=== PATIENT | female | born 1960 ===

== ENCOUNTER 2016-07-12 10:42 | Emergency (ER) | payer BC ==
[~2016-07-12] VITALS: Ht 162.6 cm; Wt 55.7 kg
[~2016-07-12 10:42] MED LIST: MECL1TAB40 PO
[2016-07-12 10:57] VITALS: TEMP 36.4; Ht 162.6 cm; Wt 55.7 kg
[2016-07-12 11:32] VITALS: O2SAT 99
[2016-07-12 12:03] LABS: BASO % 0.2 %; BASO ABS # 0.01 K/uL (0-0.2); COMPLETE YES; EOS % 0.2 %; HEMATOCRIT 39.2 % (37-47); IG% 0.2 %; LYMPH % 21.3 %; LYMPH ABS # 1.08 K/uL (1.2-3.4); MEAN CORPUSCULAR HEMOGLOBIN 29.8 pg (25-34); MEAN CORPUSCULAR HGB CONC 34.7 g/dl (32-36); MEAN PLATELET VOLUME 11.4 fL (7.4-10.4); MONO % 6.7 %; NEUT % 71.4 %; PLATELET COUNT 205 K/uL (130-400); RED BLOOD COUNT 4.56 M/uL (4.2-5.4); WHITE BLOOD COUNT 5.07 K/uL (4.8-10.8)
[2016-07-12] MEDS ORDERED: SODIUM CHLORIDE 0.9% 1000ML 1,000 ML IV STA (12:25)
--- NOTE | 2016-07-12 12:29 | EMERGENCY ROOM VISIT NOTE ---
History Report prepared by Nataly: Daniel Kirkland Under the Supervision of: Dr. Bubba Pizarro M.D. First contact with patient: 12:18 Chief Complaint: DIZZY Stated Complaint: DIZZINESS,WEAKNESS,FEVER Nursing Triage Summary: Patient reports feeling lightheaded and states it feels like hot air is coming out of her ears at times. Patient also having mild nausea on and off. Patient denies any history states that she is under a lot of stress right now. History of Present Illness The patient is a 55 year old female who presents to the Emergency Room with complaints of dizziness. Notes 3 days of increased stress at home. Associated with this are anxiety, feeling of heart racing, warmth in ears, "funny feeling in head and" without any headache nor vision changes. Denies syncope, nausea, vomiting, chest pain, sob, urinary symptoms, weakness, nor other symptoms. She DENIES any fevers, just that she felt warm this morning. She has taken no medications for this. Relaxing makes symptoms better. Thinking about stress makes them worse. History of anemia and is concerned she may be anemic again. No other medications taken for this. No history of this happening before. No PMH other than anemia. Hypertension on arrival gradually improving. Source of History: patient Onset: Past few days Position: other (global - dizziness) Timing: other (persistent) Associated Symptoms: No LOC, No SOB, No chest pain, No fevers, No headache, No nausea, No urinary symptoms, No vomiting, No weakness Note: Associated symptoms: Anxious, heart racing, warmth in ears, "funny feeling in head". Denies vision changes. Review of Systems See HPI for pertinent positives & negatives. A total of 10 systems reviewed and were otherwise negative. Past Medical & Surgical Medical Problems: (1) ANEMIA NOS (2) IRON DEFIC ANEMIA NOS (3) Orthostatic hypotension Family History No pertinent family history Social History Smoking Status: Never Smoker Marital Status: Occupation Status: employed Current/Historical Medications No Active Prescriptions or Reported Meds Allergies Coded Allergies: No Known Allergies (Unverified , 07/12/16) Physical Exam Vital Signs Date Time Temp Pulse Resp B/P Pulse Ox O2 Delivery O2 Flow Rate FiO2 07/12/16 13:56 84 20 174/97 98 07/12/16 13:40 79 07/12/16 13:24 72 20 165/91 98 Room Air 07/12/16 11:59 70 16 169/98 97 Room Air 07/12/16 11:33 68 173/113 72 167/104 74 158/108 07/12/16 11:32 99 Room Air 07/12/16 11:22 67 07/12/16 10:57 36.4 70 16 167/104 96 Room Air Physical Exam GENERAL: Patient is mildly appearing and in no acute distress. HEENT: No acute trauma, normocephalic atraumatic, mucous membranes moist, no nasal congestion, no scleral icterus. NECK: No stridor, no adenopathy, no meningismus, trachea is midline. LUNGS: No dyspnea. Clear to auscultation and equal bilaterally. No wheeze, no rhonchi. HEART: Regular rate and rhythm. Mild systolic murmur, no rubs, no gallops appreciated. ABDOMEN: Soft, nontender, bowel sounds positive, no masses appreciated, no peritonitis. BACK: No midline tenderness, no CVA tenderness EXTREMITIES: Normal motion all extremities, no cyanosis, no edema. NEUROLOGIC: Alert and oriented, no acute motor or sensory deficits, no focal weakness, cranial nerves grossly intact. SKIN: No rash, no jaundice, no diaphoresis. Medical Decision & Procedures Laboratory Results 07/12/16 11:25 Red Blood Count 4.56, Mean Corpuscular Volume 86.0, Mean Corpuscular Hemoglobin 29.8, Mean Corpuscular Hemoglobin Concent 34.7, Mean Platelet Volume 11.4, Neutrophils (%) (Auto) 71.4, Lymphocytes (%) (Auto) 21.3, Monocytes (%) (Auto) 6.7, Eosinophils (%) (Auto) 0.2, Basophils (%) (Auto) 0.2, Neutrophils # (Auto) 3.62, Lymphocytes # (Auto) 1.08, Monocytes # (Auto) 0.34, Eosinophils # (Auto) 0.01, Basophils # (Auto) 0.01 07/12/16 11:25 Test 07/12/16 11:20 07/12/16 11:25 Urine Color YELLOW Urine Appearance CLEAR (CLEAR) Urine pH 7.5 (4.5-7.5) Urine Specific [place] 1.002 (1.000-1.030) Urine Protein NEG (NEG) Urine Glucose (UA) NEG (NEG) Urine Ketones NEG (NEG) Urine Occult Blood NEG (NEG) Urine Nitrite NEG (NEG) Urine Bilirubin NEG (NEG) Urine Urobilinogen NEG (NEG) Urine Leukocyte Esterase NEG (NEG) Urine WBC (Auto) 0 /hpf (0-5) Urine RBC (Auto) 0-4 /hpf (0-4) Urine Hyaline Casts (Auto) 0 /lpf (0-5) Urine Epithelial Cells (Auto) 5-10 /lpf (0-5) Urine Bacteria (Auto) NEG (NEG) White Blood Count 5.07 K/uL (4.8-10.8) Red Blood Count 4.56 M/uL (4.2-5.4) Hemoglobin 13.6 g/dL (12.0-16.0) Hematocrit 39.2 % (37-47) Mean Corpuscular Volume 86.0 fL (80-100) Mean Corpuscular Hemoglobin 29.8 pg (25-34) Mean Corpuscular Hemoglobin Concent 34.7 g/dl (32-36) Platelet Count 205 K/uL (130-400) Mean Platelet Volume 11.4 fL (7.4-10.4) Neutrophils (%) (Auto) 71.4 % Lymphocytes (%) (Auto) 21.3 % Monocytes (%) (Auto) 6.7 % Eosinophils (%) (Auto) 0.2 % Basophils (%) (Auto) 0.2 % Neutrophils # (Auto) 3.62 K/uL (1.4-6.5) Lymphocytes # (Auto) 1.08 K/uL (1.2-3.4) Monocytes # (Auto) 0.34 K/uL (0.11-0.59) Eosinophils # (Auto) 0.01 K/uL (0-0.5) Basophils # (Auto) 0.01 K/uL (0-0.2) RDW Standard Deviation 40.4 fL (36.4-46.3) RDW Coefficient of Variation 12.8 % (11.5-14.5) Immature Granulocyte % (Auto) 0.2 % Immature Granulocyte # (Auto) 0.01 K/uL (0.00-0.02) Anion Gap 9.0 mmol/L (3-11) Est Creatinine Clear Calc Drug Dose 71.2 ml/min Estimated GFR () 99.1 Estimated GFR (Non- 85.5 BUN/Creatinine Ratio 13.9 (10-20) Calcium Level 9.0 mg/dl (8.5-10.1) Magnesium Level 2.5 mg/dl (1.8-2.4) Total Bilirubin 0.7 mg/dl (0.2-1) Aspartate Amino Transf (AST/SGOT) 14 U/L (15-37) Alanine Aminotransferase (ALT/SGPT) 21 U/L (12-78) Alkaline Phosphatase 75 U/L (45-117) Troponin I < 0.015 ng/ml (0-0.045) Total Protein 8.3 gm/dl (6.4-8.2) Albumin 4.3 gm/dl (3.4-5.0) Globulin 4.0 gm/dl (2.5-4.0) Albumin/Globulin Ratio 1.1 (0.9-2) Laboratory results as reviewed by me. Medications Administered Medications (Trade) Dose Ordered Sig/Grzegorz Route Start Time Stop Time Status Last Admin Dose Admin Sodium Chloride (Nss 1000ml) 1,000 ml @ 999 mls/hr Q1H1M STAT IV 07/12/16 12:25 07/12/16 13:25 DC 07/12/16 12:33 999 MLS/HR ECG Indication: other (dizziness) Rate (beats per minute): 73 Findings: no acute ischemic change, no ectopy ED Course 1220: The patient was evaluated in room A11A. A complete history and physical exam was performed. 1225: Ordered NSS 1000 ml @ 999 mls/hr IV. 1315: Reevaluated the patient and she is feeling better. She agrees with not getting a CT scan at the moment. Discussed results and discharge instructions: She verbalized understanding and agreement. The patient is ready for discharge. Medical Decision Differential diagnoses include Benign positional vertigo, Stress, Dehydration, Hypovolemia, Anemia, Tumor, Infection, Hypoglycemia, Electrolyte abnormalities, Cardiac sources, Intracerebral event, Toxicologic, Neurologic, as well as others were entertained. Pleasant 55 yr old female arrives with vague complaints of lightheaded/dizzy. Exam is benign without weakness. She does not have significant headache, neck stiffness nor fever. She is in no distress after some fluids. Declines any medications other than IV fluids. Mild HTN though will hold on treating in ED and defer to outpatient provider (Case Management in to discuss with patient). She admits severe stress though does not want to talk about this. Impression Primary Impression: Dizziness Additional Impressions: Hypertension Anxiety Scribe Attestation The scribe's documentation has been prepared under my direction and personally reviewed by me in its entirety. I confirm that the note above accurately reflects all work, treatment, procedures, and medical decision making performed by me. Departure Information Dispostion Home / Self-Care Prescriptions No Active Prescriptions or Reported Meds Referrals Hue Negron DO (PCP) Patient Instructions ED Hypertension Poss, My [facility] Problem Qualifiers Additional Impressions: Hypertension Hypertension type: essential hypertension Qualified Codes: I10 - Essential ( primary) hypertension
[2016-07-12 12:31] LABS: ALT/SGPT 21 U/L (12-78); AST/SGOT 14 U/L (15-37); BLOOD UREA NITROGEN 11 mg/dl (7-18); BUN/CREATININE RATIO 13.9 (10-20); CARBON DIOXIDE 28 mmol/L (21-32); CHLORIDE 104 mmol/L (98-107); CREATININE 0.79 mg/dl (0.60-1.20); GLUCOSE 90 mg/dl (70-99); POTASSIUM 3.4 mmol/L (3.5-5.1); SODIUM 141 mmol/L (136-145)
[2016-07-12 12:33] LABS: ALB/GLOB RATIO 1.1 (0.9-2); ALKALINE PHOSPHATASE 75 U/L (45-117)
[2016-07-12 12:35] LABS: URINE APPEARANCE CLEAR (CLEAR); URINE BILIRUBIN NEG (NEG); URINE COLOR YELLOW; URINE NITRITE NEG (NEG); URINE PH 7.5 (4.5-7.5); URINE SPECIFIC GRAVITY 1.002 (1.000-1.030); UROBILINOGEN NEG (NEG); ZZUR CULT IF INDIC CLEAN CATCH NO
[2016-07-12 12:37] LABS: MAGNESIUM 2.5 mg/dl (1.8-2.4)
[2016-07-12 12:42] LABS: MANUAL MICROSCOPIC REQUIRED? NO; REVIEW REQ? NO
[2016-07-12 13:56] VITALS: BP 174/97; PULSE 84; O2SAT 98
== END 2016-07-12 13:56 | disposition home or self-care (01) ==
LOC: C.EDB 10:44 → C.EDA 13:56
DX: I10 Essential (primary) hypertension (principal); R42 Dizziness and giddiness; D50.9 Iron deficiency anemia, unspecified; F41.9 Anxiety disorder, unspecified